=== PATIENT | male | born 1960 | race African-American/Black ===

== ENCOUNTER 2022-12-21 16:00 | Outpatient (CLI) | payer BC, SELFPAY ==
[2022-12-21 16:29] LABS: Basophils Percent Auto 0.5 % (0.2-1.2); Eosinophils Absolute Auto 0.1 K/mm3 (0-0.3); Eosinophils Percent Auto 1.4 % (0-4.4); Hematocrit 43.7 % (42.0-52.0); Hemoglobin 14.7 g/dL (14.0-18.0); Immature Granulocyte Absolute 0.02 K/mm3 (0.00-0.031); Immature Granulocyte Percent A 0.3 % (0-0.5); Lymphocytes Absolute Auto 2.34 K/mm3 (0.9-3.2); Lymphocytes Percent Auto 30.3 % (18.3-44.2); Mean Corpuscular HGB Conc 33.6 g/dl (32-36); Mean Corpuscular Hemoglobin 28.4 pg (26-34); Mean Corpuscular Volume 84.5 fl (80-100); Mean Platelet Volume 9.7 fl (7.4-10.4); Monocytes Absolute Auto 0.5 K/mm3 (0.1-0.6); Monocytes Percent Auto 6.6 % (2.6-8.5); Neutrophils Absolute Auto 4.7 K/mm3 (1.3-6.7); Neutrophils Percent Auto 60.9 % (45.5-73.1); Platelet Count Result 206 k/mm3 (150-375); Red Blood Count 5.17 M/mm3 (4.6-6.20); Red Cell Distribution Width 14.8 % (11.5-14.5); White Blood Count 7.7 K/mm3 (4.5-10.0)
[2022-12-21 16:41] LABS: Alanine Aminotransferase 18 U/L (6-50); Albumin Level 4.2 g/dL (3.5-5.1); Alkaline Phosphatase 84 U/L (38-126); Anion Gap 7 mmol/L (8-16); Aspartate Amino Transferase 26 U/L (17-59); Bilirubin,Total 0.8 mg/dL (0.2-1.3); Blood Urea Nitrogen 12 mg/dL (9-20); Calcium 8.2 mg/dL (8.4-10.2); Carbon Dioxide 26 mmol/L (22-30); Chloride 108 mmol/L (98-107); Cholesterol 265 mg/dL (0-200); Estimated Glomerular Filt Rate > 60; Glucose 116 mg/dL (65-110); HDL Direct 43 mg/dL; Potassium 2.9 mmol/L (3.4-5.0); Sodium 141 mmol/L (137-145); Triglycerides 168 mg/dL (<150)
[2022-12-21 16:58] LABS: LDL Cholesterol Direct 173 mg/dL
[2022-12-24 20:51] LABS: PSA, Total 1.6 ng/mL (<=4.0)
== END 2022-12-21 16:01 | disposition home or self-care (01) ==
LOC: ANHLAB 16:03
PROVIDERS: PCP Family Medicine; Visit Provider Family Medicine
DX: N40.1 Benign prostatic hyperplasia with lower urinary tract symptoms (principal); E78.2 Mixed hyperlipidemia; I10 Essential (primary) hypertension; Z12.5 Encounter for screening for malignant neoplasm of prostate
CPT/HCPCS: 36415; 80053; 80061; 84153; 84154; 85025

== ENCOUNTER 2023-04-26 09:09 | Outpatient (CLI) | payer BC, SELFPAY ==
[2023-04-26 10:03] LABS: Alanine Aminotransferase 18 U/L (6-50); Albumin Level 4.1 g/dL (3.5-5.1); Alkaline Phosphatase 86 U/L (38-126); Anion Gap 4 mmol/L (8-16); Aspartate Amino Transferase 27 U/L (17-59); Bilirubin,Total 0.9 mg/dL (0.2-1.3); Blood Urea Nitrogen 11 mg/dL (9-20); Calcium 8.6 mg/dL (8.4-10.2); Carbon Dioxide 29 mmol/L (22-30); Chloride 107 mmol/L (98-107); Cholesterol 284 mg/dL (0-200); Estimated Glomerular Filt Rate > 60; Glucose 107 mg/dL (65-110); HDL Direct 47 mg/dL; Potassium 3.1 mmol/L (3.4-5.0); Sodium 140 mmol/L (137-145); Triglycerides 139 mg/dL (<150)
[2023-04-26 10:14] LABS: LDL Cholesterol Direct 175 mg/dL
== END 2023-04-26 09:10 | disposition home or self-care (01) ==
PROVIDERS: PCP Family Medicine; Visit Provider Physician Assistant
DX: I25.10 Atherosclerotic heart disease of native coronary artery without angina pectoris (principal); I10 Essential (primary) hypertension; E78.5 Hyperlipidemia, unspecified; E87.6 Hypokalemia
CPT/HCPCS: 36415; 80053; 80061

== ENCOUNTER 2023-06-24 07:59 | Outpatient (CLI) | payer BC, SELFPAY ==
[2023-06-24 08:51] LABS: Influenza A QL RT-PCR Negative (Negative); Influenza B QL RT-PCR Negative (Negative); SARS-CoV-2 RNA PCR Positive (Negative)
== END 2023-06-24 08:00 | disposition home or self-care (01) ==
LOC: ANHLAB 08:01
PROVIDERS: PCP Family Medicine; Visit Provider Physician Assistant
DX: U07.1 COVID-19 (principal); R05.9 Cough, unspecified
CPT/HCPCS: 87636

== ENCOUNTER 2023-08-22 14:23 | Outpatient (CLI) | payer BC, SELFPAY ==
--- NOTE | ~2023-08-22 | US_ITS ---
EXAMINATION: US soft tissue groin LT DATE: 08/22/2023 15:33 INDICATION: Left groin bulge. Left groin pain. TECHNIQUE: Multiple grayscale and Doppler ultrasound images of the left groin were obtained. COMPARISON: None FINDINGS: In the left inguinal region, there is a reducible inguinal hernia containing bowel. IMPRESSION: 1. Reducible left inguinal hernia containing bowel. Reviewed, dictated and finalized at location A. H ENGINEER
--- NOTE | ~2023-08-22 | US_ITS ---
EXAMINATION: US scrotum doppler DATE: 08/22/2023 15:33 INDICATION: Left groin pain. Left groin bulge. TECHNIQUE: Grayscale and Doppler ultrasound images of the testes were obtained. COMPARISON: None. FINDINGS: The right testis measures 4.0 x 2.2 x 3.4 cm. The left testis measures 3.5 x 2.1 x 2.9 cm. There is normal vascular flow to both testes. The right epididymis is normal with normal vascular amado w. The left epididymis is normal with normal vascular flow. There is no varicocele or hydrocele. IMPRESSION: 1. Normal testes. Reviewed, dictated and finalized at location A. ER FLOATER IMPRESSION: 1. Normal testes.
== END 2023-08-22 14:24 | disposition home or self-care (01) ==
LOC: ANHIMG 14:30
PROVIDERS: PCP Family Medicine; Visit Provider Physician Assistant
DX: N50.812 Left testicular pain (principal); N50.819 Testicular pain, unspecified; K40.90 Unilateral inguinal hernia, without obstruction or gangrene, not specified as recurrent
CPT/HCPCS: 76870; 76882; 93976